=== PATIENT | male | born 1995 | race Caucasian/White ===

== ENCOUNTER 2018-01-09 07:54 | Emergency (ER) | payer SELFPAY ==
[2018-01-09 08:02] VITALS: BP 125/81; PULSE 69; RESP 16; TEMP 36.5; O2SAT 99
--- NOTE | 2018-01-09 08:03 | PC.NURSE ---
pt reports, bilateral zoroastrianism headache and back of head , gradual pain, now worsening and making him cry. felt warm, denies fever, chills, with nausea no vomiting, denies visual changes, pt with nasal congestion in the last week. 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 denies injury or trauma
--- NOTE | 2018-01-09 08:13 | DI.CT.S_ITS ---
PROCEDURE: CT HEAD/BRAIN WO CON INDICATIONS: headache for 3 weeks lost sense of smell TECHNIQUE: Noncontrast 4.5 mm thick angled axial sections acquired from the foramen magnum to the vertex, with coronal and sagittal reformats. For radiation dose reduction, the following was used: automated exposure control, adjustment of mA and/or kV according to patient size. COMPARISON: [facility], CT, HEAD WITHOUT CONTRAST, 11/29/2010, 15:52. FINDINGS: Image quality: Excellent. CSF spaces: Basal cisterns are patent. No extra-axial fluid collections. Ventricles are normal in size and shape. Brain: No midline shift. No intracranial masses or hemorrhage. Jiménez-white matter interface is normal. Skull and face: Calvarium and visualized facial bones are intact, without suspicious lesions. Sinuses: Complete opacification of bilateral frontal sinuses, bilateral ethmoid sinuses and the left sphenoid sinus. There is marked mucosal thickening in maxillary sinuses bilaterally. Mastoids are clear. IMPRESSION: 1. No acute intracranial abnormalities. 2. Severe bilateral sinusitis. Dictated by: Fani Colbert M.D. on 01/09/2018 at 8:46 Approved by: Fani Colbert M.D. on 01/09/2018 at 8:50
--- NOTE | 2018-01-09 08:22 | ED_ITS ---
HPI - Headache General Chief Complaint: Headache Stated Complaint: headache for three weeks, got bad today Time Seen by Provider: 01/09/18 08:08 Source: patient Mode of arrival: ambulatory Limitations: no limitations History of Present Illness HPI Narrative: Patient is a 22-year-old male presents with headache ongoing for last 2-3 weeks. He says that he typically does have headaches he has been taking ibuprofen which has not seem to be helping. He has previously been nauseated and vomiting today he is slightly nauseous but no vomiting. He has not had fever no neck pain. He says that he lost his sense some smell 2 years ago he can't smell anything. He did have head CT when he was younger after an accident but not since his headache. He has no numbness or tingling MD Complaint: headache Onset (ago): week(s) Onset description: gradual Related Data Previous Rx's Medication Instructions Recorded amoxicillin-pot clavulanate 1 tab PO BID #14 tab 01/09/18 [Augmentin] Allergies Allergy/AdvReac Type Severity Reaction Status Date / Time No Known Drug Allergies Allergy Verified 01/09/18 08:19 Review of Systems Review of Systems All systems reviewed & are unremarkable except as noted in HPI and below Constitutional Denies chills, Denies fever(s), Reports headache(s), Denies lethargy and Denies weakness ENT Ears, Nose, Mouth, and Throat: Reports headache(s) Cardiovascular Denies chest pain, Denies irregular heart rhythm, Denies lightheadedness, Denies palpitations, Denies dyspnea, Denies dyspnea on exertion and Denies orthopnea Respiratory Denies cough, Denies dyspnea, Denies dyspnea on exertion and Denies wheezing Gastrointestinal Gastrointestinal: Denies abdominal pain, Denies change in bowel habits, Denies diarrhea, Reports nausea and Denies vomiting Musculoskeletal Denies back pain, Denies muscle weakness, Denies numbness and Denies tingling Integumentary/Breasts Denies pruritus, Denies erythema, Denies rash and Denies wounds Neurologic Reports headache(s), Denies numbness, Denies tingling and Denies weakness Endocrine Denies palpitations Allergic/Immunologic Denies wheezing PFSH Medical History Headache (Acute) Social History Smoking Status: Never smoker alcohol intake: never substance use type: does not use Exam Initial Vital Signs Initial Vital Signs: Vital Signs Temperature 97.7 F 01/09/18 08:02 Pulse Rate 69 01/09/18 08:02 Respiratory Rate 16 01/09/18 08:02 Blood Pressure 125/81 01/09/18 08:02 Pulse Oximetry 99 01/09/18 08:02 GENERAL: Well-appearing, well-nourished and in no acute distress. HEENT: Head atraumatic,EOMI, pupils reactive, face symmetric, neck is supple no meningeal signs CARDIOVASCULAR: Regular rate and rhythm without murmurs, rubs or gallops. RESPIRATORY: Breath sounds equal bilaterally, no wheezes rales or rhonchi. ABDOMEN: Soft, nontender. Normoactive bowel sounds all 4 quadrants. No guarding or rebound. EXTREMITIES: Normal range of motion, no clubbing or edema. Neurovascularly intact NEUROLOGICAL: Alert and oriented x4.Normal gait and speech. Cranial nerves II through XII grossly intact. 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 Course Orders Ordered: ED Orders 01/09/18 08:13 CT head/brain wo con Stat Discontinued Medications Ketorolac Tromethamine (Toradol) 60 mg IM NOW ONE Stop: 01/09/18 08:17 Last Admin: 01/09/18 08:47 Dose: 60 mg Ondansetron HCl (Zofran Odt) 4 mg PO NOW ONE Stop: 01/09/18 08:17 Last Admin: 01/09/18 08:48 Dose: 4 mg Vital Signs - 8 hr 01/09/18 08:02 Temperature 97.7 F Pulse Rate 69 Respiratory Rate 16 Blood Pressure 125/81 Pulse Oximetry 99 MDM - Headache Imaging Data CT scan - head: Radiologist's impression: PROCEDURE: CT HEAD/BRAIN WO CON INDICATIONS: headache for 3 weeks lost sense of smell TECHNIQUE: Noncontrast 4.5 mm thick angled axial sections acquired from the foramen magnum to the vertex, with coronal and sagittal reformats. For radiation dose reduction, the following was used: automated exposure control, adjustment of mA and/or kV according to patient size. COMPARISON: [facility], CT, HEAD WITHOUT CONTRAST, 11/29/2010, 15:52. FINDINGS: Image quality: Excellent. CSF spaces: Basal cisterns are patent. No extra-axial fluid collections. Ventricles are normal in size and shape. Brain: No midline shift. No intracranial masses or hemorrhage. Jiménez-white matter interface is normal. Skull and face: Calvarium and visualized facial bones are intact, without suspicious lesions. Sinuses: Complete opacification of bilateral frontal sinuses, bilateral ethmoid sinuses and the left sphenoid sinus. There is marked mucosal thickening in maxillary sinuses bilaterally. Mastoids are clear. IMPRESSION: 1. No acute intracranial abnormalities. 2. Severe bilateral sinusitis. Dictated by: Fani Colbert M.D. on 01/09/2018 at 8:46 Approved by: Fani Colbert M.D. on 01/09/2018 at 8:50 [facility] Narrative Medical decision making narrative: Patient states he has never been treated for sinusitis in the past. Head CT does show severe sinusitis. May be contributing to his headache. He also some pressure over his frontal and maxillary sinuses. He appears very comfortable. His pain is much better after Toradol. Discharge Plan Departure Patient Disposition: Home Clinical Impression: Sinusitis Instructions: DI for Sinusitis Activity Restrictions/Additional Instructions: *You have been diagnosed with sinusitis *Continue to take medications as directed Augmentin 875 mg twice a day for 7 days *Follow up with your primary care provider in 2-3 days *Return to ER if you should have fever, worsening headache, neck pain, numbness , tingling, weakness or any new, worsening or concerning symptoms Prescriptions: New amoxicillin-pot clavulanate [Augmentin] 875-125 mg tablet 1 tab PO BID Qty: 14 RF: 0 Referrals: Salvador Boston MD [Primary Care Provider] -
[2018-01-09] MEDS: KETOROLAC 60 MG/2 ML VIAL IM (08:47)
[2018-01-09] MEDS: ONDANSETRON 4 MG ODT PO (08:48)
--- NOTE | 2018-01-12 14:44 | PC.NURSE ---
call back, states, feeling better.
== END 2018-01-09 09:35 | disposition home or self-care (01) ==
PROVIDERS: Emergency Provider Emergency Medicine; Family Provider Family Medicine; PCP Family Medicine
DX: J32.9 Chronic sinusitis, unspecified (principal)
CPT/HCPCS: 70450; 96372; 99282; 99284; J1885